=== PATIENT | male | born 1970 | race Caucasian/White ===

== ENCOUNTER 2020-07-28 07:55 | Emergency (ER) | payer MEDICAID ==
[~2020-07-28] VITALS: Ht 182.9 cm; Wt 95.0 kg
[2020-07-28 08:04] VITALS: BP 108/64
== END 2020-07-28 13:43 | disposition left against medical advice (07) ==
LOC: ER 08:19
DX: U07.1 COVID-19 (principal); R06.00 Dyspnea, unspecified; Z87.19 Personal history of other diseases of the digestive system
CPT/HCPCS: 93005; 99284; C9803; U0003